=== PATIENT | female | born 1980 | race Caucasian/White ===

== ENCOUNTER 2017-03-19 21:23 | Emergency (ER) | payer OTHER ==
[2017-03-19 21:30] VITALS: BP 125/80; RESP 18; TEMP 98.8; O2SAT 96
[2017-03-19] MEDS ORDERED: TETRACAINE 0.5% 15 ML OPHT.BTL EACHEYE ONE (22:22)
[2017-03-19] MEDS ORDERED: PROPARACAINE 0.5% 15 ML OPHT DROP ONE (22:24)
[2017-03-19] MEDS ORDERED: FLUORESCEIN SODIUM 1 MG STRIP OP ONE ×2 (22:26→22:28)
[2017-03-19] MEDS ORDERED: PROPARACAINE 0.5% 15 ML OPHT DROP EACHEYE ONE (22:29)
--- NOTE | 2017-03-19 22:45 | EDPHY ---
H & P Stated Complaint: 125/80 Time Seen by Provider: 03/19/17 22:00 HPI/ROS: HPI The patient presents with vision changes which have been present for the last 2- 3 days she believes. She notices in her left greater than right eye in her peripheral temporal visual field she occasionally sees what is described as "lightening bolts". This sensation is not constant, is very mild in severity, however when she was lying in bed tonight noticed it and began to do some research and was concerned about retinal detachment. She does not have any headache, eye injury, she does wear glasses for nearsightedness. She has a history of a sinus infection recently and has just finished a course of Augmentin. She has not had any fevers. She does have a history of what sounds like intermittent corneal abrasions. REVIEW OF SYSTEMS Constitutional: No fever, no chills. Eyes: No discharge. ENT: No sore throat. Cardiovascular: No chest pain, no palpitations. Respiratory: No cough, no shortness of breath. Gastrointestinal: No abdominal pain, no vomiting. Genitourinary: No hematuria. Musculoskeletal: No back pain. Skin: No rashes. Neurological: No headache. PMHx: Healthy Soc Hx: Lives at home with and 2 children PHYSICAL General Appearance: Alert, no distress Eyes: Pupils equal and round no pallor or injection EYE EXAM Visual Acuity: noted from Nurse's notes. Pupils: equal round and reactive to light EOMI Skin: no proptosis, no periorbital erythema or swelling, no vesicles Conjunctivae: not injected, no discharge Cornea: exam with fluoroscein shows no staining Anterior chamber:normal, no hyphema or hypopyon ENT, Mouth: Mucous membranes moist Respiratory: Breathing comfortably Extremities: symmetrical, full range of motion Psychiatric: Patient is oriented X 3, there is no agitation Source: Patient - Personal History LMP (Females 10-55): 15-21 Days Ago Current Tetanus/Diphtheria Vaccine: Yes - Medical/Surgical History Hx Asthma: No Hx Chronic Respiratory Disease: No Hx Diabetes: No Hx Cardiac Disease: No Hx Renal Disease: No Hx Cirrhosis: No Hx Alcoholism: No Hx HIV/AIDS: No Hx Splenectomy or Spleen Trauma: No Other PMH: denies - Social History Smoking Status: Never smoked Constitutional: Initial Vital Signs Temperature (C) 37.1 C 03/19/17 21:27 Heart Rate 88 03/19/17 21:27 Respiratory Rate 18 03/19/17 21:27 Blood Pressure 125/80 H 03/19/17 21:27 O2 Sat (%) 96 03/19/17 21:27 O2 Delivery Mode Room Air Allergies/Adverse Reactions: Metronidazole HCl [From Flagyl] Allergy (Unknown, Verified 11/10/13 15:03) Other-Enter Comments naproxen [Naproxen] Allergy (Unknown, Verified 11/10/13 15:03) Rash Medical Decision Making Procedures: Bedside ophthalmological Ultrasound- performed and interpreted by me. Indication: Vision change Findings: No retinal detachment seen, no vitreus hemorrhage seen, no vitreus detachment seen Impression: No evidence of retinal detachment Differential Diagnosis: This is a 36-year-old healthy female who presents with 2-3 days to of visual disturbance, notices in left greater than right temporal visual field occasional "lightning bolt". This is been intermittent and is not currently present. On exam, she does not have any visual field cuts and has a normal slit -lamp exam. I ultrasound demonstrates no retinal detachment. Differential diagnoses considered include retinal detachment, vitreous detachment, vitreous hemorrhage, atypical migraine headache. In the emergency department, she remained stable, eye exam was unremarkable. I feel it is safe for her to be discharged with follow up with her outpatient research staff member in the next 1-2 days and she is in agreement with this plan. - Data Points Medications Given: Discontinued Medications Fluorescein Sodium ([id number]-F-Glgkt) 1 mg OP EDNOW ONE Stop: 03/19/17 22:29 Last Admin: 03/19/17 22:30 Dose: 1 mg Proparacaine HCl (Alcaine 0.5%) 1 drops EACHEYE ONCE ONE Stop: 03/19/17 22:30 Last Admin: 03/19/17 22:30 Dose: 1 dose Tetracaine HCl (Tetracaine 0.5%) 1 drops EACHEYE ONCE ONE Stop: 03/19/17 22:23 Last Admin: 03/19/17 22:29 Dose: Not Given Departure - Departure Disposition: Home, Routine, Self-Care Clinical Impression: Visual disturbance Condition: Good Instructions: Sinusitis (ED) Additional Instructions: The cause of your vision changes could be due to floaters or possibly a migraine.. I would like for you to follow up with your eye doctor in the next 1 -2 days. Referrals: Mainor Wilkinson MD [Medical Doctor] - As per Instructions
[2017-03-19 23:07] VITALS: PULSE 76
== END 2017-03-19 23:07 | disposition home or self-care (01) ==
DX: H53.8 Other visual disturbances (principal)

== ENCOUNTER 2017-05-13 15:50 | Emergency (ER) | payer OTHER ==
[2017-05-13 15:58] VITALS: RESP 16; TEMP 97.7
--- NOTE | 2017-05-13 16:55 | EDPHY ---
H & P Smoking Status: Never smoked Time Seen by Provider: 05/13/17 16:04 HPI/ROS: CHIEF COMPLAINT: Fall head, worsening headache HISTORY OF PRESENT ILLNESS: 36-year-old female presents to the emergency department by private vehicle after she fell 6 days ago and hit her in the back of her head. The patient states that she was on a friend's however board not wearing a helmet and she slipped and fell landing on her back and hitting the back of her head. She immediately developed a frontal headache. She did not lose consciousness. She feels has that her frontal headache is getting worse. She denies any other trauma. She denies chest pain or difficulty breathing. No nausea. She is having dizziness as well. She is having difficulty concentrating. No injury to upper or lower extremities. Last menstrual period was 3 weeks ago and she denies . REVIEW OF SYSTEMS: Constitutional: No fever, no chills. Eyes: No double or blurry vision. ENT: No sore throat. Respiratory: No cough, no shortness of breath. Cardiac: No chest pain. Gastrointestinal: No abdominal pain, vomiting or diarrhea. Genitourinary: No dysuria. Musculoskeletal: No neck or back pain. Skin: No rashes. Neurological: headache. (Destinee Pena) Past Medical/Surgical History: Negative (Destinee Pena) Social History: (Destinee Pena) Physical Exam: General Appearance: Alert, no distress. Mentating normally and answering questions appropriately. No visible signs of trauma to her head. Eyes: Pupils equal and round. Extraocular motions are all intact. ENT: Mouth: Mucous membranes moist. Respiratory: No wheezing, rhonchi, or rales, lungs are clear to auscultation. Cardiovascular: Regular rate and rhythm. Gastrointestinal: Abdomen is soft and nontender, no masses, no rebound or guarding, bowel sounds normal. Neurological: Alert and oriented x 3, cranial nerves II through XII grossly intact Skin: Warm and dry, no rashes. Musculoskeletal: Nontender to palpate along the cervical, thoracic or lumbar spine. Neck is supple. Extremities: Full range of motion and no peripheral edema. Psychiatric: Patient is oriented X 3, there is no agitation. (Destinee Pena) Constitutional: Initial Vital Signs Temperature (C) 36.5 C 05/13/17 15:55 Heart Rate 83 05/13/17 15:55 Respiratory Rate 16 05/13/17 15:55 Blood Pressure 119/83 H 05/13/17 15:55 O2 Sat (%) 99 05/13/17 15:55 O2 Delivery Mode Room Air Allergies/Adverse Reactions: Metronidazole HCl [From Flagyl] Allergy (Unknown, Verified 05/13/17 15:54) Other-Enter Comments naproxen [Naproxen] Allergy (Unknown, Verified 05/13/17 15:54) Rash Home Medications: Medication Instructions Recorded NK [No Known Home Meds] 05/13/17 Medical Decision Making - Diagnostics Imaging: Discussed imaging studies w/ scallop cutter Radiologist ED Course/Re-evaluation: 36-year-old female presents to the emergency department after she fell and hit her head using a however board over 1 week ago. She complained of worsening headache, difficulty focusing and nausea. I discussed the pros and cons of CT imaging of her brain including radiation exposure and the patient requests CT scan. 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 The radiologist stated that unless this patient has chronic headaches the sagittal sinus cyst is typically non issue. This was explained to the patient I encouraged follow up with primary care provider. She was given closed-head injury precautions and will return if she develops worsening headache, vomiting, altered mental status or if she feels worse. (Destinee Pena) Differential Diagnosis: Head injury including but not limited to concussion, skull fracture, intraparenchymal contusion, subarachnoid, subdural and epidural hematoma. (Destinee Pena) Departure - Departure Disposition: Home, Routine, Self-Care Clinical Impression: Concussion Qualifiers: Encounter type: initial encounter Loss of consciousness presence/duration: without LOC Qualified Code(s): S06.0X0A - Concussion without loss of consciousness, initial encounter Head injury Qualifiers: Encounter type: initial encounter Qualified Code(s): S09.90XA - Unspecified injury of head, initial encounter Condition: Good Instructions: Concussion (ED), Head Injury (ED) Additional Instructions: Return to the emergency department if you develop worsening headache, vomiting, altered mental status, few worse in any way. Avoid any activity that risk of injury to her symptoms have completely resolved. You do have an incidental finding on her CT scan showing a sagittal sinus cyst. If you develop headaches, you should follow up with a neurologist. Referrals: Letty Cobian MD [Primary Care Provider] - As per Instructions Amanda Pastor MD [Medical Doctor] - As per Instructions (Traumatic brain injury specialist)
[2017-05-13 18:17] VITALS: BP 113/77; PULSE 82; O2SAT 98
== END 2017-05-13 18:26 | disposition home or self-care (01) ==
DX: S06.0X0A Concussion without loss of consciousness, initial encounter (principal); W01.198A Fall on same level from slipping, tripping and stumbling with subsequent striking against other object, initial encounter; Y99.8 Other external cause status

== ENCOUNTER → 2017-06-30 | Outpatient (CLI) | payer OTHER | LOC: FIMAGING 10:09 | PROVIDERS: ATTEND Obstetrics & Gynecology | DX: N63.20 Unspecified lump in the left breast, unspecified quadrant (principal) | CPT/HCPCS: G0204 ==

== ENCOUNTER 2017-10-25 11:48 | Emergency (ER) | payer OTHER ==
[2017-10-25 11:53] VITALS: TEMP 98.8
[2017-10-25] MEDS ORDERED: HYDROmorphONE/DILAUDID 2 MG/ML INJ IVP ONE (12:13)
[2017-10-25] MEDS ORDERED: NS 1,000 ML IV ONE (12:13)
[2017-10-25] MEDS ORDERED: ONDANSETRON 4 MG/2 ML VIAL IVP ONE (12:13)
[2017-10-25 12:24] LABS: PLATELET COUNT 259 10^3/uL (150-400)
[2017-10-25 13:24] VITALS: RESP 16
--- NOTE | 2017-10-25 14:32 | EDPHY ---
H & P Stated Complaint: RLQ pain, started night Time Seen by Provider: 10/25/17 12:00 HPI/ROS: Chief complaint: Right lower abdominal pain History of present illness: This is a 36-year-old female who presents to the emergency department for evaluation of right lower abdominal pain. Patient reports the onset of symptoms approximately 3 days ago. She describes a sharp pain. It is intermittent in nature. She feels has been progressively worsening. She denies precipitating factors. She denies alleviating factors. She has had associated nausea. She denies other associated signs or symptoms including no fever, no cold symptoms, no vomiting, no diarrhea, no urinary symptoms. Review of systems: A 10 point review of systems was obtained and other than described above was negative - Personal History LMP (Females 10-55): 8-14 Days Ago Current Tetanus/Diphtheria Vaccine: Yes Current Tetanus Diphtheria and Acellular Pertussis (TDAP): Yes Tetanus Vaccine Date: < 10 years - Medical/Surgical History Hx Asthma: No Hx Chronic Respiratory Disease: No Hx Diabetes: No Hx Cardiac Disease: No Hx Renal Disease: No Hx Cirrhosis: No Hx Alcoholism: No Hx HIV/AIDS: No Hx Splenectomy or Spleen Trauma: No Other PMH: denies - Social History Smoking Status: Never smoked - Physical Exam Exam: General Appearance: Alert, nontoxic. Eyes: Pupils equal and round no pallor or injection. ENT, Mouth: Mucous membranes moist. Respiratory: There are no retractions, lungs are clear to auscultation. Cardiovascular: Regular rate and rhythm. Gastrointestinal: Bowel sounds normal. Abdomen is soft and nondistended. There is tenderness to the right side of the abdomen at the level of the umbilicus. No Panchal sign. No McBurney's point tenderness. No peritoneal signs. Neurological: Alert and oriented x4. Strength and sensation intact and symmetrical. Skin: Warm and dry, no rashes. Musculoskeletal: Neck is supple non tender. Extremities are symmetrical, full range of motion. Psychiatric: Patient is oriented X 3, there is no agitation. Constitutional: Initial Vital Signs Temperature (C) 37.1 C 10/25/17 11:50 Heart Rate 96 10/25/17 11:50 Respiratory Rate 20 10/25/17 11:50 Blood Pressure 120/100 H 10/25/17 11:50 O2 Sat (%) 100 10/25/17 11:50 O2 Delivery Mode Room Air Allergies/Adverse Reactions: Metronidazole HCl [From Flagyl] Allergy (Unknown, Verified 10/25/17 11:49) Other-Enter Comments naproxen [Naproxen] Allergy (Unknown, Verified 05/13/17 15:54) Rash Home Medications: Medication Instructions Recorded NK [No Known Home Meds] 05/13/17 Medical Decision Making - Diagnostics Imaging Results: Imaging Impressions Abdomen/Pelvis CT 10/25/17 12:38 Impression: 1. Negative for nephrolithiasis or obstructive uropathy. 2. Normal size appendix with minimal edema in the periappendiceal fat of uncertain significance. 3. Shotty right lower quadrant lymph nodes may reflect mesenteric adenitis. 4. See above report for additional findings. Attention: This CT examination is specifically designed to evaluate patients who are clinically suspected of having acute obstructive uropathy. This examination does not use radiographic contrast, and as such, provides only a limited evaluation of the abdomen, pelvis, and retroperitoneum. Imaging: Discussed imaging studies w/ machine maintenance technician Radiologist ED Course/Re-evaluation: Patient discussed with my secondary supervising physician Dr. Noah Kline. Patient presents for right-sided abdominal pain. She is nontoxic. CT scan questionable for appendicitis. On-call surgery, Dr. Bose is consulted. He has seen the patient in the emergency department. He believes this is unlikely appendicitis. He suspect musculoskeletal. Patient will be discharged home. Home care is discussed. She is to follow up with a primary care doctor for recheck. Return precautions are given. Patient voiced understanding and agreement with plan. Differential Diagnosis: Included but not limited to urinary tract infection, kidney stone, appendicitis , colitis, diverticulitis, Meckel's diverticulum, an associated complications ovarian cyst, ovarian torsion - Data Points Laboratory Results: Laboratory Results 10/25/17 12:15 10/25/17 12:15 10/25/17 10/25/17 10/25/17 12:15 12:15 12:15 WBC RBC Hgb Hct MCV MCH MCHC RDW Plt Count MPV Neut % (Auto) Lymph % (Auto) [place] % (Auto) Eos % (Auto) Baso % (Auto) Nucleat RBC Rel Count Absolute Neuts (auto) Absolute Lymphs (auto) Absolute Monos (auto) Absolute Eos (auto) Absolute Basos (auto) Absolute Nucleated RBC Immature Gran % Immature Gran # Sodium 142 mEq/L mEq/L (135-145) Potassium 3.9 mEq/L mEq/L (3.5-5.2) Chloride 105 mEq/L mEq/L (97-110) Carbon Dioxide 26 mEq/l mEq/l (22-31) Anion Gap 11 mEq/L mEq/L (8-16) BUN 13 mg/dL mg/dL (7-23) Creatinine 0.7 mg/dL mg/dL (0.6-1.0) Estimated GFR > 60 Glucose 97 mg/dL mg/dL (70-100) Calcium 10.1 mg/dL mg/dL (8.5-10.4) Total Bilirubin 0.6 mg/dL mg/dL (0.1-1.4) Conjugated Bilirubin 0.3 mg/dL mg/dL (0.0-0.5) Unconjugated Bilirubin 0.3 mg/dL mg/dL (0.0-1.1) AST 28 IU/L IU/L (14-46) ALT 38 IU/L IU/L (9-52) Alkaline Phosphatase 83 IU/L IU/L (38-126) Total Protein 8.4 g/dL H g/dL (6.3-8.2) Albumin 5.0 g/dL g/dL (3.5-5.0) Lipase 115 IU/L IU/L (23-300) Beta HCG, Qual NEGATIVE Urine Color COLORLESS Urine Appearance CLEAR Urine pH 7.0 (5.0-7.5) Ur Specific [place] 1.001 L (1.002-1.030) Urine Protein NEGATIVE (NEGATIVE) Urine Ketones NEGATIVE (NEGATIVE) Urine Blood 1+ H (NEGATIVE) Urine Nitrate NEGATIVE (NEGATIVE) Urine Bilirubin NEGATIVE (NEGATIVE) Urine Urobilinogen NEGATIVE EU EU (0.2-1.0) Ur Leukocyte Esterase NEGATIVE (NEGATIVE) Urine RBC 1-3 /hpf /hpf (0-3) Urine WBC NONE SEEN /hpf /hpf (0-3) Ur Epithelial Cells NONE SEEN /lpf /lpf (NONE-1+) Urine Bacteria TRACE /hpf H /hpf (NONE SEEN) Urine Mucus TRACE /lpf /lpf (NONE-1+) Urine Glucose NEGATIVE (NEGATIVE) 10/25/17 12:15 WBC 7.97 10^3/uL 10^3/uL (3.80-9.50) RBC 4.73 10^6/uL 10^6/uL (4.18-5.33) Hgb 14.7 g/dL g/dL (12.6-16.3) Hct 43.4 % % (38.0-47.0) MCV 91.8 fL fL (81.5-99.8) MCH 31.1 pg pg (27.9-34.1) MCHC 33.9 g/dL g/dL (32.4-36.7) RDW 13.3 % % (11.5-15.2) Plt Count 259 10^3/uL 10^3/uL (150-400) MPV 10.8 fL fL (8.7-11.7) Neut % (Auto) 68.0 % % (39.3-74.2) Lymph % (Auto) 22.0 % % (15.0-45.0) [place] % (Auto) 8.3 % % (4.5-13.0) Eos % (Auto) 1.0 % % (0.6-7.6) Baso % (Auto) 0.6 % % (0.3-1.7) Nucleat RBC Rel Count 0.0 % % (0.0-0.2) Absolute Neuts (auto) 5.42 10^3/uL 10^3/uL (1.70-6.50) Absolute Lymphs (auto) 1.75 10^3/uL 10^3/uL (1.00-3.00) Absolute Monos (auto) 0.66 10^3/uL 10^3/uL (0.30-0.80) Absolute Eos (auto) 0.08 10^3/uL 10^3/uL (0.03-0.40) Absolute Basos (auto) 0.05 10^3/uL 10^3/uL (0.02-0.10) Absolute Nucleated RBC 0.00 10^3/uL 10^3/uL (0-0.01) Immature Gran % 0.1 % % (0.0-1.1) Immature Gran # 0.01 10^3/uL 10^3/uL (0.00-0.10) Sodium Potassium Chloride Carbon Dioxide Anion Gap BUN Creatinine Estimated GFR Glucose Calcium Total Bilirubin Conjugated Bilirubin Unconjugated Bilirubin AST ALT Alkaline Phosphatase Total Protein Albumin Lipase Beta HCG, Qual Urine Color Urine Appearance Urine pH Ur Specific [place] Urine Protein Urine Ketones Urine Blood Urine Nitrate Urine Bilirubin Urine Urobilinogen Ur Leukocyte Esterase Urine RBC Urine WBC Ur Epithelial Cells Urine Bacteria Urine Mucus Urine Glucose Medications Given: Discontinued Medications Hydromorphone HCl (Dilaudid) 0.5 mg IVP EDNOW ONE Stop: 10/25/17 12:14 Last Admin: 10/25/17 12:27 Dose: 0.5 mg Sodium Chloride (Ns) 1,000 mls @ 0 mls/hr IV EDNOW ONE; Wide Open PRN Reason: Protocol Stop: 10/25/17 12:14 Last Admin: 10/25/17 12:26 Dose: 1,000 mls Ondansetron HCl (Zofran) 4 mg IVP EDNOW ONE Stop: 10/25/17 12:14 Last Admin: 10/25/17 12:27 Dose: 4 mg Departure - Departure Disposition: Home, Routine, Self-Care Clinical Impression: Abdominal pain Qualifiers: Abdominal location: right lower quadrant Qualified Code(s): R10.31 - Right lower quadrant pain Condition: Good Instructions: Acute Abdominal Pain (ED) Additional Instructions: Follow-up with your primary care doctor for continued evaluation and care this week If symptoms worsen or new symptoms develop return to the emergency room for recheck Referrals: Letty Cobian MD [Primary Care Provider] - As per Instructions
[2017-10-25 14:56] VITALS: BP 109/65; PULSE 72; O2SAT 97
--- NOTE | 2017-10-25 17:19 | GCON ---
[f rep st] CONSULTATION Consultation requested by the ER. REASON FOR CONSULTATION: Abdominal pain. HISTORY: The patient is a 36-year-old female. She had Persian food for dinner, which was only mildly spicy on . at 10 p.m., she had the sudden onset of the most intense pain she has ever had. It was described as stabbing, in the right mid to lower quadrant. It lasted approximately a minute. The pain was described as 10/10. It then let up and reduced down to 4/ 10. It repeated several episodes, then it was gone completely. She was able to go to sleep and essentially was without pain on Thursday and Thursday. She complained of feeling bloated on Thursday night and had 2 more episodes. She had breakfast, and then the pain recurred 3 times today. She has had no fevers or chills. No nausea or vomiting. She usually moves her bowels once a day and has done so for the last several days but moved her bowels 3 times today; it was soft and loose. There is no history of kidney stones. There is no history of prior abdominal surgery or prior similar symptoms. She has not had a recent upper respiratory tract infection or diarrhea. She has not had any travel outside the [place], though she did travel to [place], then went to the mountains, went skiing prior to the onset of this current episode. She has had both the chronic bronchitis and sinus infection which have been treated with antibiotics. There is no history of inflammatory bowel disease. SOCIAL HISTORY: She does not smoke. She drinks 5 glasses of wine a week. ALLERGIES: She has a reaction to Naprosyn, manifested by a rash with swelling of her lips and throat. Flagyl also results in swelling of her lips, as does the consumption of passion fruit. MEDICATIONS: She is not currently taking medications. PAST SURGICAL HISTORY: Only surgery has been a D and C. There is no history of rheumatic fever, tuberculosis, hepatitis, transfusions. REVIEW OF SYSTEMS: She wears lenses for visual correction. She has had 1 concussion. She has dental veneers. Her last mammogram was within the year. Her last Pap smear was a few months ago and was normal. Her last menstrual period was on October 13 and normal. She does suffer with anxiety. There are no limits on her activities. No history of steroid use. PHYSICAL EXAMINATION: GENERAL: She is awake, alert, in no acute distress but complains of a concern for a recurrence of the acute distress in her right lower quadrant. BACK: Unremarkable and nontender to palpation. LUNGS: Clear to auscultation. CARDIAC: S1, S2 to be normal with no split of S2. Without murmurs, rubs, or gallops. LYMPHATICS: There is no cervical, supraclavicular, axillary, or inguinal lymphadenopathy. ABDOMEN: Not distended. She has hypoactive bowel sounds. Psoas and obturator signs are negative. With cough, she is questionably tender in the right lower quadrant. To palpation, she is tender at a level of 1/10 in the left upper quadrant, left mid abdomen, left lower quadrant, epigastrium, periumbilical region, and a 1-2 in the suprapubic region, but she states she has to empty her bladder. Right upper quadrant is 1, right mid abdomen is 1, right lower quadrant is 2. There is no distinct tenderness over the iliac crest. LABORATORY DATA: White blood cell count is 8000 with 68% neutrophils. Her beta HCG is negative. Platelet count is 256. The red cells in her urine are 1- 3. RECOMMENDATIONS: I do not feel she has an intraabdominal surgical problem at this point. The chronicity and the type of pain, as well as the white count, argues against appendicitis and her CT shows a normal appendix. The CT does not show any mesenteric adenitis. I doubt this is an early presentation of Crohn disease, given the transient nature of the symptomatology. I doubt this is related to her reproductive tract. The CT scan was done without contrast to evaluate for kidney stone. No kidney stone was seen. This does not totally eliminate that as a possibility but makes it less likely. Note is made there is no dilatation of the calices. Certainly, her prior back issue could have been exacerbated by traveling and skiing and that could play a role in her symptomatology, but that, too, may be less likely. She Has not been drinking much water this week and certainly is full of stool ( a laxative may be in order) which may account for her discomfort.. /[id number]/MODL MTDD
== END 2017-10-25 14:56 | disposition home or self-care (01) ==
DX: R10.31 Right lower quadrant pain (principal); E86.9 Volume depletion, unspecified
CPT/HCPCS: 96374; J1170; J2405

== ENCOUNTER → 2017-12-23 | Outpatient (CLI) | payer OTHER | LOC: FIMAGING 11:29 | PROVIDERS: ATTEND Obstetrics & Gynecology | DX: N83.02 Follicular cyst of left ovary (principal) ==

== ENCOUNTER → 2018-12-14 | Outpatient (CLI) | payer BC | LOC: FIMAGING 09:17 | PROVIDERS: ATTEND Obstetrics & Gynecology | DX: Z12.31 Encounter for screening mammogram for malignant neoplasm of breast (principal) ==